=== PATIENT | male | born 1985 | race Caucasian/White ===

== ENCOUNTER 2017-07-28 03:59 | Emergency (ER) | payer OTHER ==
[2017-07-28] MEDS ORDERED: Aspirin 81 MG Tab.Chew PO ONE (04:31)
--- NOTE | 2017-07-28 04:36 | EDM.PDOC ---
ED HPI GENERAL MEDICAL PROBLEM - General Chief Complaint: Chest Pain Stated Complaint: chest tightness Time Seen by Provider: 07/28/17 03:59 Source of Information: Reports: Patient History Limitations: Reports: No Limitations - History of Present Illness INITIAL COMMENTS - FREE TEXT/NARRATIVE: Patient is a 32-year-old who presented to the emergency room with chief complaint of chest tightness did not radiate to the neck or arm with palpitations this resolve by the time that he got in Onset: Sudden Duration: Minutes: (60 minutes ago started lasted for 10 minutes), Improving Location: Reports: Chest Quality: Reports: Pressure Severity: Mild Improves with: Reports: None Worsens with: Reports: None Context: Reports: Sick Contact Associated Symptoms: Reports: Chest Pain Chest Pain Score (Numeric/FACES): 3 - Related Data Allergies Allergy/AdvReac Type Severity Reaction Status Date / Time No Known Allergies Allergy Verified 07/28/17 04:09 Home Meds: Home Meds Metoprolol Succinate/HCTZ [Metoprolol ER-Hctz 50-12.5 mg] 1 each PO QPM 30 Days tab.er.24h 07/28/17 [Rx] ED ROS GENERAL - Review of Systems Review Of Systems: See Below Constitutional: Reports: No Symptoms HEENT: Reports: No Symptoms Respiratory: Reports: No Symptoms Cardiovascular: Reports: Palpitations, Other (Palpitations) Endocrine: Reports: No Symptoms GI/Abdominal: Reports: No Symptoms : Reports: No Symptoms Musculoskeletal: Reports: No Symptoms Skin: Reports: No Symptoms Neurological: Reports: No Symptoms Psychiatric: Reports: No Symptoms ED EXAM, GENERAL - Physical Exam Exam: See Below Nose: Normal Inspection, Normal Mucosa, No Blood Throat/Mouth: Normal Inspection, Normal Lips, Normal Teeth, Normal Gums, Normal Oropharynx, Normal Voice, No Airway Compromise Head: Atraumatic, Normocephalic Neck: Normal Inspection, Supple, Non-Tender, Full Range of Motion Respiratory/Chest: No Respiratory Distress, Lungs Clear, Normal Breath Sounds, No Accessory Muscle Use, Chest Non-Tender Cardiovascular: Normal Peripheral Pulses, Regular Rate, Rhythm, No Edema, No Gallop, No JVD, No Murmur, No Rub GI/Abdominal: Other (left flank pain with CVA tenderness on the left side) (Male) Exam: Deferred Rectal (Males) Exam: Deferred Back Exam: Normal Inspection, Full Range of Motion, NT Extremities: Normal Inspection, Normal Range of Motion, Non-Tender, Normal Capillary Refill, No Pedal Edema Neurological: Alert, Oriented, CN II-XII Intact, Normal Cognition, Normal Gait, Normal Reflexes, No Motor/Sensory Deficits Psychiatric: Normal Affect, Normal Mood Skin Exam: Warm, Dry, Intact, Normal Color, No Rash Lymphatic: No Adenopathy Course - Vital Signs Last Recorded V/S: Last Vital Signs Temp 97.7 F 07/28/17 04:49 Pulse 75 07/28/17 08:06 Resp 16 07/28/17 08:06 BP 131/77 07/28/17 08:06 Pulse Ox 100 07/28/17 07:00 - Orders/Labs/Meds Labs: Laboratory Tests 07/28/17 07/28/17 07/28/17 Range/Units 04:30 04:30 04:30 WBC 6.1 (4.0-10.2) K/uL RBC 4.60 (4.33-5.41) M/uL Hgb 14.2 (13.1-16.8) g/dL Hct 40.5 (39.0-49.0) % MCV 88.0 (84.0-98.0) fL MCH 30.9 (28.2-33.3) pg MCHC 35.1 (31.7-36.0) g/dL RDW 12.1 (11.2-14.1) % Plt Count 201 (150-350) K/uL Neut % (Auto) 51.5 (45.0-80.0) % Lymph % (Auto) 36.7 (10.0-50.0) % Cecil % (Auto) 6.9 (2.0-14.0) % Eos % (Auto) 4.4 (0.0-5.0) % Baso % (Auto) 0.5 (0.0-2.0) % Neut # (Auto) 3.12 (1.40-7.00) K/uL Lymph # (Auto) 2.23 (0.50-3.50) K/uL Cecil # (Auto) 0.42 (0.00-1.00) K/uL Eos # (Auto) 0.27 (0.00-0.50) K/uL Baso # (Auto) 0.03 (0.00-0.20) K/uL D-Dimer, Quantitative < 100 (0-400) ng/mL Sodium 142 (136-145) mmol/L Potassium 3.5 (3.5-5.1) mmol/L Chloride 105 (98-107) mmol/L Carbon Dioxide 27.8 (21.0-32.0) mmol/L BUN 17 (7-18) mg/dL Creatinine 1.32 H (0.51-1.17) mg/dL Est Cr Clr Drug Dosing 98.64 mL/min Estimated GFR (MDRD) > 60 mL/min Glucose 105 (74-106) mg/dL Calcium 8.9 (8.5-10.1) mg/dL Creatine Kinase 148 (26-308) U/L Creatine Kinase Index 0.3 (0.0-2.5) % CK-MB (CK-2) 0.40 (0.00-3.60) ng/mL Troponin I 0.000 (0.000-0.056) ng/mL 07/28/17 Range/Units 08:20 WBC (4.0-10.2) K/uL RBC (4.33-5.41) M/uL Hgb (13.1-16.8) g/dL Hct (39.0-49.0) % MCV (84.0-98.0) fL MCH (28.2-33.3) pg MCHC (31.7-36.0) g/dL RDW (11.2-14.1) % Plt Count (150-350) K/uL Neut % (Auto) (45.0-80.0) % Lymph % (Auto) (10.0-50.0) % Cecil % (Auto) (2.0-14.0) % Eos % (Auto) (0.0-5.0) % Baso % (Auto) (0.0-2.0) % Neut # (Auto) (1.40-7.00) K/uL Lymph # (Auto) (0.50-3.50) K/uL Cecil # (Auto) (0.00-1.00) K/uL Eos # (Auto) (0.00-0.50) K/uL Baso # (Auto) (0.00-0.20) K/uL D-Dimer, Quantitative (0-400) ng/mL Sodium (136-145) mmol/L Potassium (3.5-5.1) mmol/L Chloride (98-107) mmol/L Carbon Dioxide (21.0-32.0) mmol/L BUN (7-18) mg/dL Creatinine (0.51-1.17) mg/dL Est Cr Clr Drug Dosing mL/min Estimated GFR (MDRD) mL/min Glucose (74-106) mg/dL Calcium (8.5-10.1) mg/dL Creatine Kinase (26-308) U/L Creatine Kinase Index (0.0-2.5) % CK-MB (CK-2) (0.00-3.60) ng/mL Troponin I 0.000 (0.000-0.056) ng/mL Meds: Medications Discontinued Medications Generic Name Dose Route Start Last Admin Trade Name Freq PRN Reason Stop Dose Admin Aspirin 324 mg 07/28/17 04:31 07/28/17 04:45 Aspirin PO 07/28/17 04:32 324 mg ONETIME ONE Administration Labetalol HCl 25 mg 07/28/17 04:40 07/28/17 04:46 Normodyne PO 07/28/17 04:41 25 mg ONETIME ONE Administration Departure - Departure Time of Disposition: 09:30 Disposition: Home, Self-Care 01 Condition: Fair Clinical Impression: Nephrolithiasis Prescriptions: Metoprolol Succinate/HCTZ [Metoprolol ER-Hctz 50-12.5 mg] 1 each PO QPM 30 Days tab.er.24h Instructions: Nonspecific Chest Pain Referrals: Reuben Self PA [Physician [employer]] - PCP,None [Primary Care Provider] - Forms: ED Department Discharge Care Plan Goals: Verbal Discharge Orders:/ELY Muniz 1). Return to [facility] for Cardiac Stress Test: this facility will call you with date and time. 2). 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 3). Follow up with COURTNEY Guevara 1 week after cardiac stress test. 4). Return to ER with any concerns or unrelieved pain.
[2017-07-28] MEDS ORDERED: Labetalol 100 MG Tab PO ONE (04:40)
[2017-07-28 04:58] LABS: CHLORIDE,CL 105 mmol/L (98-107); SODIUM,NA 142 mmol/L (136-145)
== END 2017-07-28 09:30 | disposition home or self-care (01) ==
LOC: LL.ED 03:59
DX: R07.89 Other chest pain (principal); N20.0 Calculus of kidney
CPT/HCPCS: 36000; 36415; 71020; 80048; 82550; 82553; 84484; 85025; 85379; 93005; 99285; A9270